=== PATIENT | female | born 1965 | race African-American/Black ===

== ENCOUNTER 2023-05-25 09:58 | Emergency (ER) | payer OTHER ==
[~2023-05-25] VITALS: Ht 167.6 cm; Wt 44.5 kg
[2023-05-25 10:02] VITALS: BP 193/103; PULSE 102; RESP 18
== END 2023-05-25 11:37 | disposition home or self-care (01) ==
LOC: EDH 09:58
DX: R63.4 Abnormal weight loss (principal); I10 Essential (primary) hypertension; F32.A Depression, unspecified; F41.9 Anxiety disorder, unspecified; Z68.1 Body mass index [BMI] 19.9 or less, adult